=== PATIENT | female | born 1995 | race Caucasian/White ===

== ENCOUNTER 2023-07-25 12:24 | Emergency (ER) | payer SELFPAY ==
--- NOTE | ~2023-07-25 | US_ITS ---
EXAMINATION: US OBSTETRICAL CLINICAL INFORMATION: Right lower quadrant pain. Ectopic evaluation. Last menstrual period: 06/16/2023. COMPARISON: None available. TECHNIQUE: Transabdominal and transvaginal imaging was performed. Transvaginal imaging was performed for further evaluation of the endometrium and adnexa. FINDINGS: The uterus is anteflexed in position, measuring 9.6 x 4.3 x 4.3 cm. Within the endometrial cavity is a well formed gestation sac measuring 1.1 cm in diameter. A small yolk sac is present. This yields an estimated gestational age of 5 weeks and 6 days by ultrasound and date of delivery of 03/22/2024. No pole is demonstrated, potentially secondary to early age of imaging. The cervix measures approximately 3.8 cm in length. The right ovary measures 3.7 x 2.1 x 3 cm. There is a thick-walled cyst, measuring 2.1 x 1.1 x 2.1 cm (suggestive of a corpus luteal cyst). The left ovary measures 3 x 1.2 x 2 cm. There are 2 anechoic cysts associated with the left ovary, measuring up to 1.8 and 1 cm (suggestive of physiologic follicles). There is trace free fluid within the pelvis. US/US OB pelvic and transvaginal IMPRESSION: Single intrauterine gestational sac estimated to be 5 weeks and 6 days menstrual age which would correlate with an estimated date of delivery of 03/22/2024. No pole is demonstrated at this time, potentially related to early age at imaging. If clinically indicated, follow-up ultrasound in 2 weeks could be performed as visualization of the embryo would be expected by this time.
[2023-07-25 12:34] VITALS: BP 124/83; PULSE 85; RESP 20; TEMP 37.1; O2SAT 98; BMI 24.7
--- NOTE | 2023-07-25 12:37 | ED_ITS ---
HPI - General Adult General Chief complaint: Abdominal Pain Stated complaint: 4-5 weeks preg, feeling pressure Time Seen by Provider: 07/25/23 16:33 Source: patient Mode of arrival: ambulatory Limitations: no limitations History of Present Illness HPI narrative: Patient is a 28-year-old female , LMP 1/7 presenting to the emergency department complaining of right lower quadrant abdominal pain for the past week. Reports she recently visited [facility] and her test was positive. Also complains of nausea and occasional vomiting since finding out she is . Denies any diarrhea or constipation. She denies any vaginal bleeding or other abnormal vaginal discharge. She denies any dysuria, frequency, hematuria or other urinary symptoms. Denies back or flank pain. States she did not have similar symptoms with her 1st . MD complaint: Abdominal pain Onset (ago): week(s) Location: abdomen Radiation: non-radiation Severity: moderate Quality: aching Pain Consistency: colicky Relieving factors: none Exacerbating factors: other (Palpation) Associated symptoms: nausea/vomiting Treatments prior to arrival: none Related Data Previous Rx's Medication Instructions Recorded cephalexin 500 mg capsule 500 mg PO TID #15 caps 07/25/23 Allergies Allergy/AdvReac Type Severity Reaction Status Date / Time No Known Allergies Allergy Verified 07/25/23 12:36 Review of Systems 2 Review of Systems: As per HPI. Yes all other systems are reviewed and are negative Constitutional: Constitutional: Reports as per HPI [facility] Social History Social History Advance Directives: No Advance Directives Information Provided: No Physical Exam ED Vital Signs: Vital Signs - 24 hr 07/25/23 12:34 Temperature 98.8 F Pulse Rate 85 Respiratory Rate 20 Blood Pressure 124/83 Pulse Oximetry 98 Oxygen Delivery Method Room Air BMI result Body Mass Index 24.7 Vital signs have been reviewed and appear to be correct. Blood pressure normal. Heart rate normal. Respiratory rate normal. Temperature normal. Oxygen saturation normal. Const General: cooperative, healthy appearing and no acute distress Orientation/consciousness: oriented to person, oriented to place, oriented to time and patient oriented x3 Limitations: no limitations HENMT Head: Yes normocephalic and Yes atraumatic Ears: external ears normal General nose exam: Normal external nose present Face and sinus: Yes face symmetric Mouth: oropharynx normal and moist mucous membranes Throat: Yes uvula midline Eyes Pupils: Equal, round and reactive pupils present Neck Neck: Yes normal visual inspection and Yes supple Resp Effort & Inspection: normal respiratory effort and able to speak in complete sentences Auscultation: clear to auscultation bilaterally Cardio Rate: regular rate Rhythm: regular rhythm Heart sounds: S1 normal heart sound present and S2 normal heart sound present GI Inspection: Yes normal to inspection Palpation (GI): Soft to palpation and Tenderness to palpation present (GI) in the RLQ Auscultation: normoactive bowel sounds General: Yes no CVA tenderness Back/Spine/Pelvis Back: no CVA tenderness Skin General skin exam: elasticity normal and turgor normal Neuro General: oriented to person, oriented to place, oriented to time, patient oriented x3, moves all extremities, no focal motor deficits and CN's II-XI intact bilaterally Cranial nerves: Yes Equal, round and reactive pupils present Cognition (Neuro): normal cognition Extrem General: Yes full ROM, Yes no pedal edema and Yes no calf tenderness Psych Mental Status: mental status grossly normal Affect: normal affect Thought process: Normal thought process present Course Course Course Narrative: This is an RME: Additional HPI, ROS, PE not included below will be deferred to primary provider. Patient is a 28-year-old female who presents to the emergency department for evaluation of pelvic pressure, pressure to the lower abdomen primarily right side but also on the left, nausea. Reports she is [facility], last menstrual period 06/22/2023 Plan: Labs, urinalysis Medical Decision Making Medical Decision Making MDM Narrative: Patient is a 28-year-old female , LMP 06/22 presenting to the emergency department complaining of right lower quadrant abdominal pain for the past week. On exam patient is awake, A+Ox3, VS WNL, afebrile, normal neurological exam without focal deficits, physical exam findings as above. Given reported symptoms and physical exam findings, initial differential includes ectopic , ovarian cyst, appendicitis. Unlikely ovarian torsion. Labs notable for HCG consistent with report of LMP of 06/22. Urinalysis notable for 1+ leukocytes, 6-10 WBCs, 1+ bacteria, 6-10 epithelials. Likely contamination but given that patient is , will treat for UTI. Ultrasound notable for single intrauterine gestational sac with estimated 5 weeks 6 day menstrual age, no pole demonstrated at this time. My interpretation is in agreement with the radiologist's interpretation. Stable for discharge home Differential Diagnosis Differential Diagnoses: The differential diagnosis associated with the presentation includes As per [facility]. Admission/Observation Consideration of admission/observation: Escalation of care including admission/observation considered Lab Data [facility] Lab Attestation statement: I reviewed the patient's lab results. As per MDM. 07/25/23 13:38 07/25/23 13:38 Labs: Lab Results 07/25/23 07/25/23 Range/Units 13:38 13:42 WBC 10.8 (4.8-10.8) X10*3/uL RBC 5.27 (4.20-5.50) X10*6/uL Hgb 12.2 (12.0-16.0) g/dl Hct 38.1 (37.0-47.0) % MCV 72.3 L (80.0-98.0) fL MCH 23.1 L (27.0-33.0) pg MCHC 32.0 (31.0-35.0) g/dl RDW 16.1 H (11.0-16.0) % Plt Count 417 H (160-400) X10*3/uL MPV 9.7 (9.4-12.3) fL Immature Gran % (Auto) 0.4 (0.0-0.4) % Neut % (Auto) 72.2 (45-73) % Lymph % (Auto) 19.5 L (20-40) % [place] % (Auto) 7.7 (2-11) % Eos % (Auto) 0.0 (0-4) % Baso % (Auto) 0.2 (0-2) % Lymph # (Auto) 2.1 (1.2-4.9) X10*3/uL [place] # (Auto) 0.8 (0.1-1.2) X10*3/uL Eos # (Auto) 0.0 (0.0-0.4) X10*3/uL Baso # (Auto) 0.0 (0.0-0.2) X10*3/uL Abs Immat Gran (auto) 0.04 H (0.00-0.03) X10*3/uL Absolute Neuts (auto) 7.8 (2.0-8.3) x10*3/uL Absolute Nucleated RBC 0.000 (0.0-0.012) X10*3/uL Nucleated RBC % (auto) 0.0 (0.0-0.2) /100WBC Sodium 135 (135-145) mmol/L Potassium 4.3 (3.3-5.1) mmol/L Chloride 105 (96-108) mmol/L Carbon Dioxide 23 (22-29) mmol/L Anion Gap 11 L (12-20) BUN 5 L (9-16) mg/dL Creatinine 0.77 (0.5-1.4) mg/dL Estim Creat Clear Calc 95.3 Estimated GFR > 60 Random Glucose 92 (60-115) mg/dL Calcium 9.8 (8.4-10.2) mg/dL Total Bilirubin 0.4 (0.0-1.0) mg/dL AST 15 (5-31) U/L ALT 12 (0-31) U/L Alkaline Phosphatase 65 (39-117) U/L Total Protein 8.5 H (6.5-8.0) g/dL Albumin 4.5 (3.5-5.0) g/dL Beta HCG, Quant 34186 mIU/mL Urine Color Yellow Urine Appearance Clear Urine pH 6.0 (5.0-9.0) Ur Specific [place] 1.010 (1.005-1.025) Urine Protein Negative (Neg-Trace) mg/dL Urine Glucose (UA) Negative (Negative) mg/dL Urine Ketones Negative (Negative) mg/dL Urine Blood Negative (Negative) Urine Nitrite Negative (Negative) Ur Leukocyte Esterase Small (1+) H (Negative) Urine RBC 0-2 (0-2) /HPF Urine WBC 6-10 H (0-5) /HPF Ur Squamous Epith Cells 6-10 (0-2) /HPF Urine Bacteria 1+ (None Seen) Hyaline Casts 0-2 (0-2) /LPF Independent Interpretation I performed an independent interpretation of an: Ultrasound Interpretation: No evidence of ectopic Radiology Impression Discussion of test interpretation with radiology: I have reviewed the radiologist's reading. Radiologist Impression: US/US OB pelvic and transvaginal IMPRESSION: Single intrauterine gestational sac estimated to be 5 weeks and 6 days menstrual age which would correlate with an estimated date of delivery of 03/22/2024. No pole is demonstrated at this time, potentially related to early age at imaging. If clinically indicated, follow-up ultrasound in 2 weeks could be performed as visualization of the embryo would be expected by this time. External Record Review External record reviewed: Inpatient record, Office record and Outpatient record Prescription Management I considered prescription management with: Antibiotic Discharge Plan Discharge Clinical Impression: Urinary tract infection Patient Disposition: Home, Self-Care Instructions: Urinary Tract Infection in (ED) Additional Instructions: You have been evaluated in the emergency department today for abdominal pain in . Your evaluation did not show evidence of medical conditions requiring emergent intervention at this time. Your urine showed evidence of infection. You are being treated with a course of antibiotics for urinary tract infection, please complete full course as prescribed. Please follow-up with your OBGYN this week. Please schedule an appointment with your primary care physician. Return to the emergency department if you experience worsening or uncontrolled pain, vaginal bleeding or abnormal discharge, fevers 100.4? F or greater, recurrent vomiting, inability to tolerate food or fluids by mouth, bloody stools or vomit, black or tarry stools, or any other concerning symptoms. Prescriptions: New cephalexin 500 mg capsule 500 mg PO TID Qty: 15 0RF
[2023-07-25 13:46] LABS: MANUAL DIFF FLAG NO
[2023-07-25 13:47] LABS: Basophils Percent Auto 0.2 % (0-2); Hematocrit 38.1 % (37.0-47.0); Hemoglobin 12.2 g/dl (12.0-16.0); Imm Gran Abs Auto 0.04 X10*3/uL (0.00-0.03); Imm Gran Pct Auto 0.4 % (0.0-0.4); Lymphocytes Absolute Auto 2.1 X10*3/uL (1.2-4.9); Lymphocytes Percent Auto 19.5 % (20-40); Mean Corpuscular Hemoglobin 23.1 pg (27.0-33.0); Mean Corpuscular Volume 72.3 fL (80.0-98.0); Mean Platelet Volume 9.7 fL (9.4-12.3); Monocytes Absolute Auto 0.8 X10*3/uL (0.1-1.2); Monocytes Percent Auto 7.7 % (2-11); Neutrophils Absolute Auto 7.8 x10*3/uL (2.0-8.3); Neutrophils Percent Auto 72.2 % (45-73); Platelet Count 417 X10*3/uL (160-400); Red Blood Count 5.27 X10*6/uL (4.20-5.50); Red Cell Distribution Width 16.1 % (11.0-16.0); White Blood Count 10.8 X10*3/uL (4.8-10.8)
[2023-07-25 13:49] LABS: Appearance Urine Clear; Color Urine Yellow; Glucose Urine UA Negative (Negative); Leukocyte Esterase Urine Small (1+) (Negative); Nitrite Urine Negative (Negative); UMIC TRIGGER UACC YES; Urine Blood Negative (Negative); Urine Ketones Negative (Negative); Urine Protein Negative (Neg-Trace)
[2023-07-25 13:51] LABS: Bacteria Urine 1+ (None Seen); Hyaline Casts Urine 0-2 /LPF (0-2); RBC Urine 0-2 /HPF (0-2); UACC Culture Trigger YES
[2023-07-25 14:18] LABS: Alanine Aminotransferase 12 U/L (0-31); Albumin Level 4.5 g/dL (3.5-5.0); Alkaline Phosphatase 65 U/L (39-117); Anion Gap 11 (12-20); Aspartate Amino Transferase 15 U/L (5-31); Bilirubin Total 0.4 mg/dL (0.0-1.0); Blood Urea Nitrogen 5 mg/dL (9-16); Calcium 9.8 mg/dL (8.4-10.2); Carbon Dioxide 23 mmol/L (22-29); Chloride 105 mmol/L (96-108); Creatinine Clr Calc Pharmacy 95.3; Estimated Glomerular Filt Rate > 60; Glucose Random 92 mg/dL (60-115); HCG Quantitative 11262 mIU/mL; Potassium 4.3 mmol/L (3.3-5.1); Sodium 135 mmol/L (135-145); Total Protein 8.5 g/dL (6.5-8.0)
== END 2023-07-25 19:31 | disposition home or self-care (01) ==
PROVIDERS: Nurse Practitioner Family; Emergency Provider Emergency Medicine
DX: O26.891 Other specified pregnancy related conditions, first trimester (principal); R10.2 Pelvic and perineal pain; O23.41 Unspecified infection of urinary tract in pregnancy, first trimester; N39.0 Urinary tract infection, site not specified; Z3A.01 Less than 8 weeks gestation of pregnancy
CPT/HCPCS: 36415; 76801; 76817; 80053; 81001; 84702; 85025; 87086; 99282; 99284